=== PATIENT | female | born 1985 | race Caucasian/White ===

== ENCOUNTER 2023-12-25 08:54 | Emergency (ER) | payer BC, SELFPAY | END 2023-12-25 10:20 | disposition home or self-care (01) | LOC: MADERS 08:54 | DX: S60.222A Contusion of left hand, initial encounter (principal); W23.1XXA Caught, crushed, jammed, or pinched between stationary objects, initial encounter ==

== ENCOUNTER 2025-03-13 02:54 | Emergency (ER) | payer OTHER ==
[2025-03-13] MEDS ORDERED: Boostrix 0.5 ML (Tdap) VIAL (>/=7 yrs of age) ONE (03:15)
[2025-03-13] MEDS ORDERED: Bacitracin 1 PK ONE (03:27)
[2025-03-13 12:43] LABS: HBSAB Concentration 142.83 mIU/mL; HIV (1/2) Antibody/Antigen NONREACTIVE (NonReactive); HIV 1/2 INDEX 0.28 S/CO (<1.00); Hep C IgG Ab NONREACTIVE S/CO (NonReactive); Hep C Index 0.07 S/CO (0-0.79)
== END 2025-03-13 04:20 | disposition home or self-care (01) ==
LOC: MADERS 02:54
DX: S50.812A Abrasion of left forearm, initial encounter (principal); Z23 Encounter for immunization; W50.4XXA Accidental scratch by another person, initial encounter; Y93.89 Activity, other specified; Y99.0 Civilian activity done for income or pay
CPT/HCPCS: 36415; 86706; 86803; 87389; 90471; 90715